=== PATIENT | male | born 2000 | race Caucasian/White ===

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

== ENCOUNTER 2022-07-17 17:38 | Emergency (ER) | payer OTHER ==
[2022-07-17 17:45] VITALS: BP 132/84; PULSE 86; RESP 18; TEMP 97.8; BMI 45.5
[2022-07-17 20:47] LABS: BASO % 0.4 % (0-2.0); EOS % 0.3 % (0-4.5); HEMOGLOBIN 14.4 GM/dL (11.7-16.9); LYMPH % 23.9 % (8-40); MCH 26.9 pg (25.7-33.7); MCHC 34.2 g/dl (32.0-35.9); MEAN CELL VOLUME 78.7 fl (80-96); MEAN PLT VOLUME 8.9 fl (7.5-11.1); MONO % 7.4 % (3.8-10.2); PLATELET COUNT 190 10^3/uL (134-434); RBC 5.34 M/mm3 (4.00-5.60); RDW 15.5 % (11.9-15.9); WHITE BLOOD COUNT 10.2 K/mm3 (4.0-10.0)
[2022-07-17 21:14] LABS: ALBUMIN 3.8 g/dl (3.4-5.0); CALCIUM 9.2 mg/dL (8.5-10.1)
[2022-07-17 21:15] LABS: BLOOD UREA NITROGEN 15.9 mg/dL (7-18)
[2022-07-17 21:18] LABS: CREATININE 1.1 mg/dL (0.55-1.3)
[2022-07-17 21:20] LABS: BILIRUBIN,TOTAL 0.4 mg/dL (0.2-1); TOT PROT 7.3 g/dl (6.4-8.2)
== END 2022-07-17 22:13 | disposition home or self-care (01) ==
LOC: JER 17:38
DX: S09.90XA Unspecified injury of head, initial encounter (principal); V49.40XA Driver injured in collision with unspecified motor vehicles in traffic accident, initial encounter
CPT/HCPCS: 36415; 70450-TC; 71046-TC-FY; 72125-TC; 80053; 84484; 85025; 93005; 93010; 99285-25